=== PATIENT | female | born 1980 | race Hispanic/Latino ===

== ENCOUNTER 2017-12-24 23:15 | Emergency (ER) | payer OTHER, MEDICAID ==
[2017-12-25 00:21] LABS: EOSINOPHILS % (AUTO) 0.7 % (0.0-8.0); HEMATOCRIT 34.8 % (36-48); LYMPHOCYTES % (AUTO) 23.4 % (21.0-51.0); MEAN CORPUSCULAR HEMOGLOBIN 28.1 pg (27.0-33.0); MEAN CORPUSCULAR HGB CONC 33.5 g/dL (32.0-36.0); MEAN CORPUSCULAR VOLUME 83.9 fL (79-99); MONOCYTES % (AUTO) 6.9 % (3.0-13.0); NUCLEATED RED BLOOD CELLS 0.1 % (0.0-0.19); PLATELET COUNT (AUTO) 318 K/uL (130-400); RED BLOOD CELL COUNT(AUTO) 4.14 MIL/uL (4.00-5.50); RED CELL DISTRIBUTION WIDTH 15.5 % (11.0-15.5)
[2017-12-25 01:06] LABS: APPEARANCE,URINE Clear (CLEAR); BILIRUBIN,URINE Negative (NEGATIVE); COLOR,URINE Yellow (YELLOW); GLUCOSE, URINE (UA) Negative (NEGATIVE); KETONES,URINE Negative (NEGATIVE); LEUKOCYTE ESTERASE ,URINE Negative (NEGATIVE); NITRATE,URINE Negative (NEGATIVE); OCCULT BLOOD,URINE Moderate (NEGATIVE); PH,URINE 6.5 (5.0-8.0); PROTEIN,URINE Negative (NEGATIVE); UROBILINOGEN,URINE 0.2 mg/dL (0.2-1.0)
[2017-12-25 01:29] LABS: BACTERIA,URINE Few /HPF (None Seen); SQUAMOUS EPITHELIAL CELL,UR 0-2 /HPF (0-2); WBC,URINE 0-1 /HPF (0-1)
== END 2017-12-25 01:27 | disposition home or self-care (01) ==
LOC: EDH 23:15
DX: O02.0 Blighted ovum and nonhydatidiform mole (principal); Z3A.09 9 weeks gestation of pregnancy
CPT/HCPCS: 36415; 76817; 81001; 84702; 85025